=== PATIENT | female | born 2000 | race Caucasian/White ===

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

== ENCOUNTER 2022-05-06 02:11 | Inpatient (IN) ==
[2022-05-06] MEDS ORDERED: KETOROLAC TROMETHAMINE 15 MG/ML VIAL IV STA (02:38)
[2022-05-06] MEDS ORDERED: dexAMETHasone**PF** 10 MG/ML VIAL IV ONE (02:38)
[2022-05-06] MEDS ORDERED: FAMOTIDINE 20MG IV PUSH 20 MG/5 ML SYR IV STA (02:38)
[2022-05-06] MEDS ORDERED: SODIUM CHLORIDE 0.9% 1000ML 1,000 ML IV ONE ×2 (02:38→03:24)
--- NOTE | 2022-05-06 02:46 | Emergency Department Note ---
History of Present Illness General Chief complaint: Vomiting Stated complaint: VOMITING, JUST HAD TONSILS OUT Time Seen by Provider: 05/06/22 02:30 History of Present Illness Maximum Pain Intensity: 8 This 21-year-old presents to the ER complaining of nausea vomiting and feeling dehydrated who had a tonsillectomy last week Location: throat Quality: burning Severity: moderate Duration: past week Timin week ago Context: Patient felt dehydrated and came in Modifying factors: better with rest; worse with activity Patient denies chest pain, dyspnea, fevers, flulike illness. Tonsillectomy was done by [facility]. Home Medications Medication Instructions Recorded Confirmed Type escitalopram oxalate 20 mg tablet 20 mg PO DAILY #30 tab 03/28/21 05/06/22 Rx ondansetron HCl 4 mg tablet 4 mg PO Q6H PRN #10 tab 05/03/22 05/06/22 Rx acetaminophen 500 mg tablet 500 mg PO Q6H PRN 05/06/22 05/06/22 History (Tylenol Extra Strength) ibuprofen 200 mg tablet 400 mg PO Q6H PRN 05/06/22 05/06/22 History oxycodone 5 mg/5 mL oral solution 10 mg PO Q6H PRN 05/06/22 05/06/22 History Allergies Allergy/AdvReac Type Severity Reaction Status Date / Time No Known Allergies Allergy Verified 05/06/22 02:35 Past Med/Surg History Medical History No acute medical problems Surgical History History of wisdom tooth extraction Family History Grandmother (Maternal) Breast cancer Cancer Mother Asthma Allergies Other No family history of adverse response to anesthesia No family history of bleeding disorder Denies family history of Ovarian cancer Prostate cancer Myocardial infarction Colorectal cancer Social History Smoking Status: Never smoker Hx Alcohol Use: No Hx Substance Use: No Preferred Language: Turkmen marital status: Single Current Living Situation: Family current occupational status: employed Feels Safe at Home: Yes caffeine: Yes Dental Care, Regularly: Yes Physical Activity Frequency: Daily Seatbelt Use: always Sunscreen Use: Yes Review of Systems A total of 10 systems reviewed and were otherwise negative Physical Exam Vital Signs Vital Signs - 24 hr 05/06/22 02:18 05/06/22 04:45 05/06/22 06:16 Temperature 36.7 C Temperature Source Temporal Artery Scan Pulse Rate 89 Pulse Rate [Right] 75 86 Pulse Rhythm Regular Pulse Rhythm [Right] Regular Regular Pulse Strength Normal Pulse Strength [Right] Normal Normal Respiratory Rate 18 16 16 Respiratory Effort / Characteristics Non-Labored Spontaneous Non-Labored Spontaneous Non-Labored Spontaneous Respiratory Depth Normal Normal Normal Respiratory Pattern Regular Blood Pressure 114/73 Blood Pressure [Right Arm] 121/60 120/63 Blood Pressure Mean 86 Blood Pressure Mean [Right Arm] 80 82 Blood Pressure Position Sitting Blood Pressure Position [Right Arm] Sitting Lying Pulse Oximetry 97 98 96 Oxygen Delivery Method Room Air Room Air Room Air Sepsis Recent Fever Within 48 Hours No Sepsis New/Unexplained Change in Mental Status N/A Sepsis Action Taken by Nursing No Action Required VITALS: Vitals are noted on the nurse's note and reviewed by myself. Vital signs stable. GENERAL: Pleasant female, in no acute distress, nondiaphoretic, well-developed well-nourished. SKIN: The skin was without rashes, erythema, edema, or bruising. There is no tenting of the skin. Capillary reflex less than 2 seconds. HEAD: Normocephalic atraumatic. EARS: External auditory canals clear, tympanic membranes pearly agosto without erythema or effusion bilaterally. EYES: Pupils equal round and reactive to light and accommodation. Conjunctivae without injection, sclerae without icterus. Extraocular movements intact. NOSE: Patent, turbinates without inflammation or discharge. No sinus tenderness. MOUTH: Mucous membranes moist. Pharynx with erythematous with white pillars consistent with recent tonsillectomy without signs of infection. Uvula midline. Airway patent. Tongue does not deviate. NECK: Supple without nuchal rigidity. No lymphadenopathy. No thyromegaly. Cervical spine is nontender. No JVD. HEART: Regular rate and rhythm without murmurs gallops or rubs. LUNGS: Clear to auscultation bilaterally without wheezes, rales or rhonchi. No retractions or accessory muscle use. ABDOMEN: Positive bowel sounds x 4. Normal tympanic percussion. Soft, nontender, without masses or organomegaly. Jane sign negative. No guarding or rebound tenderness. No CVA tenderness MUSCULOSKELETAL: No muscle atrophy, erythema, or edema noted. NEURO: Patient was alert and oriented to person place and time. Normal sensation to light and sharp touch. No focal neurological deficits. Course Administered Medications Discontinued Medications Dexamethasone Sodium Phosphate (DexamethasonePf 10 Mg/Ml Vial) 10 mg IV NOW ONE Stop: 05/06/22 02:39 Last Admin: 05/06/22 03:00 Dose: 10 mg Documented by: [id number] Sodium Chloride (Nss 1000ml) 1,000 mls @ 999 mls/hr IV .Q1H1M ONE Stop: 05/06/22 03:38 Last Infusion: 05/06/22 04:04 Dose: 0 mls/hr Documented by: [id number] Admin: 05/06/22 02:54 Dose: 999 mls/hr Documented by: [id number] Infusion: 05/06/22 02:54 Dose: 999 mls/hr Documented by: [id number] Admin: 05/06/22 02:54 Dose: 999 mls/hr Documented by: [id number] Famotidine (Pepcid 20mg Iv Push) 20 mg in 5 mls @ 2.5 mls/min IV NOW STA Stop: 05/06/22 02:39 Last Admin: 05/06/22 02:55 Dose: 2.5 mls/min Documented by: [id number] Sodium Chloride (Nss 1000ml) 1,000 mls @ 999 mls/hr IV .Q1H1M ONE Stop: 05/06/22 03:38 Last Infusion: 05/06/22 04:04 Dose: 0 mls/hr Documented by: [id number] Admin: 05/06/22 02:54 Dose: 999 mls/hr Documented by: [id number] Sodium Chloride (Nss 1000ml) 1,000 mls @ 999 mls/hr IV .Q1H1M ONE Stop: 05/06/22 04:24 Last Infusion: 05/06/22 06:10 Dose: 0 mls/hr Documented by: [id number] Admin: 05/06/22 05:09 Dose: 999 mls/hr Documented by: [id number] Ketorolac Tromethamine (Ketorolac Tromethamine 15 Mg/Ml Vial) 10 mg IV NOW STA Stop: 05/06/22 02:39 Last Admin: 05/06/22 02:57 Dose: 10 mg Documented by: [id number] Morphine Sulfate (Morphine Sulfate 4 Mg/Ml 1 Ml Carp\Vial) 4 mg IV NOW STA Stop: 05/06/22 05:14 Last Admin: 05/06/22 05:20 Dose: 4 mg Documented by: [id number] Ondansetron HCl (Ondansetron Home Pack 4mg Od Tab) 1 homepack PO NOW ONE Stop: 05/06/22 02:55 Last Admin: 05/06/22 05:48 Dose: Not Given Documented by: [id number] Ondansetron HCl (Ondansetron Inj 2 Mg/Ml 2 Ml Vial) 4 mg IV NOW STA Stop: 05/06/22 02:55 Last Admin: 05/06/22 02:57 Dose: 4 mg Documented by: [id number] Medical Decision Making Medical Records Attestation: I reviewed the patient's medical records. Home Medications Current Medication List: was personally reviewed by me Laboratory Data Attestation: I reviewed the patient's lab results. Result diagrams: 05/06/22 02:50 05/06/22 05:31 Lab Results 05/06/22 05/06/22 05/06/22 Range/Units 02:50 02:50 03:46 WBC 9.72 (4.8-10.8) K/uL RBC 4.88 (4.2-5.4) M/uL Hgb 14.5 (12.0-16.0) g/dL Hct 42.2 (37-47) % MCV 86.5 (80-100) fL MCH 29.7 (25-34) pg MCHC 34.4 (32-36) g/dL RDW Std Deviation 39.7 (36.4-46.3) fL RDW Coeff of Shola 12.4 (11.5-14.5) % Plt Count 297 (130-400) K/uL MPV 10.4 (7.4-10.4) fL Immature Gran % (Auto) 0.3 % Neut % (Auto) 68.4 % Lymph % (Auto) 20.1 % [place] % (Auto) 9.6 % Eos % (Auto) 1.1 % Baso % (Auto) 0.5 % Neut # (Auto) 6.65 H (1.4-6.5) K/uL Lymph # (Auto) 1.95 (1.2-3.4) K/uL [place] # (Auto) 0.93 H (0.11-0.59) K/uL Eos # (Auto) 0.11 (0-0.5) K/uL Baso # (Auto) 0.05 (0-0.2) K/uL Immature Gran # (Auto) 0.03 H (0.00-0.02) K/uL VBG pH (7.36-7.41) VBG pCO2 (38-50) mmHg VBG pO2 mmHg VBG HCO3 mmol/L VBG O2 Saturation % VBG Base Excess mEq/L Sodium 135 L (136-145) mmol/L Potassium TNP Chloride 109 H (98-107) mmol/L Carbon Dioxide 9 L* (21-32) mmol/L Anion Gap 17 H (3-11) BUN 10 (6-23) mg/dl Creatinine 0.63 (0.6-1.2) mg/dl Est Cr Clr Drug Dosing 153.0 ml/min Est GFR ( Amer) 147.6 ml/min Est GFR (Non-Af Amer) 127.3 ml/min BUN/Creatinine Ratio 15.9 (10-20) Glucose 72 (70-99(Fasting)) mg/dl Calcium 9.7 (8.5-10.1) mg/dl Total Bilirubin (0.2-1.0) mg/dl Direct Bilirubin (0-0.2) mg/dl AST (13-39) U/L ALT (7-52) U/L Alkaline Phosphatase (34-104) U/L Total Protein (6.0-8.3) gm/dl Albumin (3.4-5.0) gm/dl HCG, Qual Negative (Negative) Salicylates (3.0-30) mg/dl Acetaminophen (10-30) ug/ml Ethyl Alcohol mg/dL (<10.0) mg/dl SARS-CoV-2, RNA, NAAT (NEGATIVE) 05/06/22 05/06/22 05/06/22 Range/Units 03:46 03:46 05:28 WBC (4.8-10.8) K/uL RBC (4.2-5.4) M/uL Hgb (12.0-16.0) g/dL Hct (37-47) % MCV (80-100) fL MCH (25-34) pg MCHC (32-36) g/dL RDW Std Deviation (36.4-46.3) fL RDW Coeff of Shola (11.5-14.5) % Plt Count (130-400) K/uL MPV (7.4-10.4) fL Immature Gran % (Auto) % Neut % (Auto) % Lymph % (Auto) % [place] % (Auto) % Eos % (Auto) % Baso % (Auto) % Neut # (Auto) (1.4-6.5) K/uL Lymph # (Auto) (1.2-3.4) K/uL [place] # (Auto) (0.11-0.59) K/uL Eos # (Auto) (0-0.5) K/uL Baso # (Auto) (0-0.2) K/uL Immature Gran # (Auto) (0.00-0.02) K/uL VBG pH 7.21 L (7.36-7.41) VBG pCO2 30 L (38-50) mmHg VBG pO2 42 mmHg VBG HCO3 12 mmol/L VBG O2 Saturation 73.0 % VBG Base Excess -14.5 mEq/L Sodium (136-145) mmol/L Potassium 4.1 Chloride (98-107) mmol/L Carbon Dioxide (21-32) mmol/L Anion Gap (3-11) BUN (6-23) mg/dl Creatinine (0.6-1.2) mg/dl Est Cr Clr Drug Dosing ml/min Est GFR ( Amer) ml/min Est GFR (Non-Af Amer) ml/min BUN/Creatinine Ratio (10-20) Glucose (70-99(Fasting)) mg/dl Calcium (8.5-10.1) mg/dl Total Bilirubin (0.2-1.0) mg/dl Direct Bilirubin (0-0.2) mg/dl AST (13-39) U/L ALT (7-52) U/L Alkaline Phosphatase (34-104) U/L Total Protein (6.0-8.3) gm/dl Albumin (3.4-5.0) gm/dl HCG, Qual (Negative) Salicylates (3.0-30) mg/dl Acetaminophen (10-30) ug/ml Ethyl Alcohol mg/dL (<10.0) mg/dl SARS-CoV-2, RNA, NAAT NEGATIVE (NEGATIVE) 05/06/22 05/06/22 05/06/22 Range/Units 05:31 05:31 05:31 WBC (4.8-10.8) K/uL RBC (4.2-5.4) M/uL Hgb (12.0-16.0) g/dL Hct (37-47) % MCV (80-100) fL MCH (25-34) pg MCHC (32-36) g/dL RDW Std Deviation (36.4-46.3) fL RDW Coeff of Shola (11.5-14.5) % Plt Count (130-400) K/uL MPV (7.4-10.4) fL Immature Gran % (Auto) % Neut % (Auto) % Lymph % (Auto) % [place] % (Auto) % Eos % (Auto) % Baso % (Auto) % Neut # (Auto) (1.4-6.5) K/uL Lymph # (Auto) (1.2-3.4) K/uL [place] # (Auto) (0.11-0.59) K/uL Eos # (Auto) (0-0.5) K/uL Baso # (Auto) (0-0.2) K/uL Immature Gran # (Auto) (0.00-0.02) K/uL VBG pH (7.36-7.41) VBG pCO2 (38-50) mmHg VBG pO2 mmHg VBG HCO3 mmol/L VBG O2 Saturation % VBG Base Excess mEq/L Sodium 135 L (136-145) mmol/L Potassium 4.4 Chloride 112 H (98-107) mmol/L Carbon Dioxide 11 L (21-32) mmol/L Anion Gap 12 H (3-11) BUN 9 (6-23) mg/dl Creatinine 0.53 L (0.6-1.2) mg/dl Est Cr Clr Drug Dosing 181.8 ml/min Est GFR ( Amer) > 150.0 ml/min Est GFR (Non-Af Amer) 134.8 ml/min BUN/Creatinine Ratio 17.0 (10-20) Glucose 82 (70-99(Fasting)) mg/dl Calcium 8.4 L (8.5-10.1) mg/dl Total Bilirubin 0.5 (0.2-1.0) mg/dl Direct Bilirubin 0.0 (0-0.2) mg/dl AST 15 (13-39) U/L ALT 12 (7-52) U/L Alkaline Phosphatase 87 (34-104) U/L Total Protein 7.3 (6.0-8.3) gm/dl Albumin 3.9 (3.4-5.0) gm/dl HCG, Qual (Negative) Salicylates < 3.0 L (3.0-30) mg/dl Acetaminophen < 3 L (10-30) ug/ml Ethyl Alcohol mg/dL < 10.0 (<10.0) mg/dl SARS-CoV-2, RNA, NAAT (NEGATIVE) MDM Narrative Prior records/ancillary studies reviewed. Triage Nursing notes reviewed. Additional history obtained from family. The patient's history was concerning for feeling dehydrated and ongoing throat pain after tonsillectomy Differential diagnosis: Etiologies such as postsurgical complication, dehydration, viral illness, infection as well as others were entertained. ER treatment provided: IV fluids, Zofran, Pepcid, Decadron, toradol, morphine On reassessment the patient felt better. Diagnostics interpreted by me: The labs revealed no worrisome leukocytosis. pH 7.2. Bicarb is low. Gap is high. Negative alcohol. Negative Tylenol. Negative aspirin. Negative hCG This appears to be consistent with nausea and vomiting and dehydration from recent surgery. Patient was acidotic on initial testing so extensive laboratory work-up was initiated. Medicine was consulted. She will be admitted. By the ev aluation outlined above emergent etiologies such as peritonsillar abscess, retropharyngeal abscess, otitis, pneumonia, meningitis, sepsis, bacteremia, as well as others were deemed relatively unlikely. The pt informed about the findings as listed above. All questions were answered and pleased with the treatment. The chart was completed utilizing [employer] voice recognition software. Grammatical errors, random word insertions, pronoun errors, and incomplete sentences are an occassional consequence of this system due to software limitations, ambient noise, and hardware issues. Any formal questions or concerns about the content, text, or information contained within the body of this dictation should be directly addressed to the physician speech language pathologist assistant for clarification. Impression & Plan S/P T&A (status post tonsillectomy and adenoidectomy), Acute dehydration, Vomiting Discharge Plan Visit Data Chief Complaint: Vomiting Stated Complaint: VOMITING, JUST HAD TONSILS OUT ED Provider: Jayy Millard ED Midlevel Provider: Deborah Fernandez Discharge Problem: S/P T&A (status post tonsillectomy and adenoidectomy), Acute dehydration, V omiting Patient Disposition: Admitted As Inpatient Condition: Good Discharge Instructions Krames/Other Patient Handouts: ED [facility] Vomiting Activity Restrictions/Additional Instructions: Forms Stand Alone Forms: Virtual Emergency Department, Important Visit Information Prescriptions Prescriptions: No Action escitalopram oxalate 20 mg tablet 20 mg PO DAILY Qty: 30 RF: 2 oxycodone 5 mg/5 mL solution 10 mg PO Q6H PRN (Reason: Pain) RF: 0 acetaminophen [Tylenol Extra Strength] 500 mg Tablet 500 mg PO Q6H PRN (Reason: Pain) RF: 0 ibuprofen 200 mg Tablet 400 mg PO Q6H PRN (Reason: Pain) RF: 0 ondansetron HCl 4 mg tablet 4 mg PO Q6H PRN (Reason: nausea and vomiting) Qty: 10 RF: 0 Referrals Referrals: Kelsie Currie MD [Primary Care Provider] -
[2022-05-06] MEDS: SODIUM CHLORIDE 0.9% 1000ML 1,000 ML IV ONE (02:54)
[2022-05-06] MEDS ORDERED: ONDANSETRON HOME PACK 4MG OD TAB PO ONE (02:54)
[2022-05-06] MEDS ORDERED: ONDANSETRON INJ 2 MG/ML 2 ML VIAL IV STA ×2 (02:54→17:35)
[2022-05-06 03:21] LABS: Basophils # (auto) 0.05 K/uL (0-0.2); Basophils % (auto) 0.5 %; Eosinophils # (auto) 0.11 K/uL (0-0.5); Eosinophils % (auto) 1.1 %; Hematocrit (blood only) 42.2 % (37-47); Hemoglobin 14.5 g/dL (12.0-16.0); Immature Granulocytes # (auto) 0.03 K/uL (0.00-0.02); Immature Granulocytes % (auto) 0.3 %; Lymphocytes # (auto) 1.95 K/uL (1.2-3.4); Lymphocytes % (auto) 20.1 %; Mean Corpuscular Hemoglobin 29.7 pg (25-34); Mean Corpuscular Hgb Conc 34.4 g/dL (32-36); Mean Corpuscular Volume 86.5 fL (80-100); Mean Platelet Volume 10.4 fL (7.4-10.4); Monocytes # (auto) 0.93 K/uL (0.11-0.59); Monocytes % (auto) 9.6 %; Neutrophils # (auto) 6.65 K/uL (1.4-6.5); Neutrophils % (auto) 68.4 %; Platelet Count 297 K/uL (130-400); RDW Coefficient of Variation 12.4 % (11.5-14.5); RDW Standard Deviation 39.7 fL (36.4-46.3); Red Blood Count 4.88 M/uL (4.2-5.4); White Blood Count 9.72 K/uL (4.8-10.8)
[2022-05-06 03:22] LABS: Anion Gap 17 (3-11); BUN Creatinine Ratio 15.9 (10-20); Blood Urea Nitrogen 10 mg/dl (6-23); Calcium 9.7 mg/dl (8.5-10.1); Carbon Dioxide 9 mmol/L (21-32); Chloride 109 mmol/L (98-107); Est GFR (African American) 147.6 ml/min; Est GFR (Non-African American) 127.3 ml/min; Glucose 72 mg/dl (70-99(Fasting)); Sodium 135 mmol/L (136-145)
[2022-05-06 03:53] LABS: Base Excess VBG -14.5 mEq/L; HCO3 VBG 12 mmol/L; PCO2 VBG 30 mmHg (38-50); PO2 VBG 42 mmHg; pH VBG 7.21 (7.36-7.41)
[2022-05-06 04:11] LABS: Pregnancy Test, Serum Negative (Negative)
[2022-05-06] MEDS ORDERED: MoRPHine SULFATE 4 MG/ML 1 ML CARP\\VIAL IV STA (05:13)
[2022-05-06 06:17] LABS: Acetaminophen < 3 ug/ml (10-30); Alanine Aminotransferase 12 U/L (7-52); Albumin Level 3.9 gm/dl (3.4-5.0); Alkaline Phosphatase 87 U/L (34-104); Anion Gap 12 (3-11); Aspartate Aminotransferase 15 U/L (13-39); Bilirubin,Total 0.5 mg/dl (0.2-1.0); Blood Urea Nitrogen 9 mg/dl (6-23); Calcium 8.4 mg/dl (8.5-10.1); Carbon Dioxide 11 mmol/L (21-32); Chloride 112 mmol/L (98-107); Creatinine Clr Calc Pharmacy 181.8 ml/min; Est GFR (African American) > 150.0 ml/min; Est GFR (Non-African American) 134.8 ml/min; Glucose 82 mg/dl (70-99(Fasting)); Potassium 4.4 mmol/L (3.5-5.1); Salicylate < 3.0 mg/dl (3.0-30); Sodium 135 mmol/L (136-145); Total Protein 7.3 gm/dl (6.0-8.3)
--- NOTE | 2022-05-06 06:18 | Emergency Department Note ---
ED Visit Note [facility] patient's oropharynx has postoperative changes in the posterior pharynx and hypopharynx. She has no evidence of scab or current oral bleeding. Patient is stable for admission here for rehydration .
--- NOTE | 2022-05-06 06:28 | History & Physical Report ---
Date of Service May 06, 2022 Assessment & Plan (1) Acute dehydration: Plan: 21 y/o F Hx anxiety and recurrent tonsillitis. She is one week post tonsillectomy at [facility]. She reports an inability to eat or drink sufficient amounts, reflux and vomiting bile 2 x prior to arrival. Initial labs were notable for a bicarb of 9 and a pH of 7.2. 1) Anion gap acidosis likely due to poor intake and bicarb loss. Interestingly, electrolytes are otherwise normal. Pt is admitted for IVF and correction of acidosis. She received 2L IVF in the ER. We are pending repeat labs and can provide bicarb if needed based on results. DC later in day may be possible if acidosis corrects. 2) Anxiety - cont Lexapro 3) Post tonsillectomy - FU with ENT, pain control. Full code - ambulatory Total time for this admit including review of labs, meds, imaging, records - discussion with pt and ER attending - 37 min (2) S/P T&A (status post tonsillectomy and adenoidectomy): (3) Throat pain: (4) Acidosis: History of Present Illness Chief Complaint: [place], vomiting, poor PO intake, throat pain Primary Care Provider: Kelsie Currie MD 21 y/o F Hx anxiety and recurrent tonsillitis. She is one week post tonsillectomy at [facility]. She reports an inability to eat or drink sufficient amounts, reflux and vomiting bile 2 x prior to arrival. Initial labs were notable for a bicarb of 9 and a pH of 7.2. PMH: limited to anxiety Surgical: Limited to tonsillectomy Social: does not smoke. Occasional ETOH Family: Parents alive and well Allergies Allergy/AdvReac Type Severity Reaction Status Date / Time No Known Allergies Allergy Verified 05/06/22 02:35 Home Medications Medication Instructions Recorded Confirmed Type escitalopram oxalate 20 mg tablet 20 mg PO DAILY #30 tab 03/28/21 05/06/22 Rx ondansetron HCl 4 mg tablet 4 mg PO Q6H PRN #10 tab 05/03/22 05/06/22 Rx acetaminophen 500 mg tablet 500 mg PO Q6H PRN 05/06/22 05/06/22 History (Tylenol Extra Strength) ibuprofen 200 mg tablet 400 mg PO Q6H PRN 05/06/22 05/06/22 History oxycodone 5 mg/5 mL oral solution 10 mg PO Q6H PRN 05/06/22 05/06/22 History Past Med/Surg History Medical History No acute medical problems Surgical History History of wisdom tooth extraction Family History Grandmother (Maternal) Breast cancer Cancer Mother Asthma Allergies Other No family history of adverse response to anesthesia No family history of bleeding disorder Denies family history of Ovarian cancer Prostate cancer Myocardial infarction Colorectal cancer Social History Smoking Status: Never smoker Hx Alcohol Use: No Hx Substance Use: No Preferred Language: Yakut marital status: Single Current Living Situation: Family current occupational status: employed Feels Safe at Home: Yes caffeine: Yes Dental Care, Regularly: Yes Physical Activity Frequency: Daily Seatbelt Use: always Sunscreen Use: Yes Review of Systems Review of Systems: Gen: Denies fevers, night sweats, rigors, fatigue, malaise, weight loss/gain ENT: + throat pain Eyes: Denies acute visual changes CV: Denies CP, palpitations Pulmonary: Denies SOB, cough, wheezing GI: + nausea/vomiting Neuro: Denies acute or unilateral weakness, acute gait impairment, headache or acute visual changes Musculoskeletal: Denies joint pain, inflammation Endocrine: Denies polydipsia, polyuria Skin: Denies acute rashes or ulcers Physical Exam Physical Exam: General: AAO x 3, no distress ENT: Post-op exudate over pharynx/arches Eyes: RANGEL, EOMI Head and neck: Normocephalic, atraumatic, No JVD, neck is supple. Chest/heart: Nontender, S1,2, RRR, no murmurs, no gallops Lungs: CTAB, no wheezing or crackles Abdomen: Nontender, nondistended, BS+ Neuro: AAO x 3, speech is clear, no unilateral weakness or loss of sensation, coordination intact Musculoskeletal: No joint inflammation, muscle tenderness, FROM Skin: No acute rashes or ulcers Extremities: No clubbing, cyanosis, edema Results & Data Results & Data ([facility] [place]) Vital Signs (Past 12 Hours) Vital Signs Temp Pulse Pulse Resp BP BP Pulse Ox 05/06/22 04:45 75 16 121/60 98 05/06/22 02:18 98.1 F 89 18 114/73 97 PG Care Time/CCT Total # of Minutes Spent Total Time Spent with Patient: Total time spent is greater than 50% in coordination of care (as documented) at patient's floor/unit and/or counseling patient: Coding Level of Care Code INT OBSERVATION CARE 50M LVL 2 Diagnoses Acute dehydration E86.0 S/P T&A (status post tonsillectomy and adenoidectomy) Z90.89 Throat pain R07.0 Acidosis E87.2
[2022-05-06] MEDS ORDERED: STAT IV STA (06:34)
[2022-05-06] MEDS ORDERED: SODIUM BICARBONATE 8.4% 150 MEQ in DEXTROSE 5% 1,000 ML IV SCH (07:00)
[2022-05-06] MEDS ORDERED: ACETAMINOPHEN 500 MG TAB PO PRN (09:31)
[2022-05-06] MEDS ORDERED: IBUPROFEN 200 MG TAB PO PRN (09:31)
[2022-05-06] MEDS: D5W AND NSS 1,000 ML IV SCH (09:33)
[2022-05-06] MEDS ORDERED: ACETAMINOPHEN SUSP 500 MG/15.6 ML UDP PO PRN (10:03)
[2022-05-06] MEDS: ESCITALOPRAM OXALATE 20 MG TAB PO SCH (11:31)
[2022-05-06 12:46] LABS: Anion Gap 10 (3-11); BUN Creatinine Ratio 16.7 (10-20); Blood Urea Nitrogen 8 mg/dl (6-23); Calcium 9.2 mg/dl (8.5-10.1); Carbon Dioxide 15 mmol/L (21-32); Chloride 110 mmol/L (98-107); Creatinine Clr Calc Pharmacy 191.3 ml/min; Est GFR (African American) > 150.0 ml/min; Est GFR (Non-African American) 139.2 ml/min; Glucose 203 mg/dl (70-99(Fasting)); Potassium 4.4 mmol/L (3.5-5.1); Sodium 135 mmol/L (136-145)
[2022-05-06] MEDS ORDERED: IBUPROFEN 200 MG/10 ML UDC PO PRN (13:00)
[2022-05-06] MEDS: HYDROmorphone INJ 0.5 MG/0.5 ML SYR IV PRN (17:16)
[2022-05-06] MEDS ORDERED: ONDANSETRON INJ 2 MG/ML 2 ML VIAL IV ONE (17:27)
[2022-05-06] MEDS ORDERED: ONDANSETRON INJ 2 MG/ML 2 ML VIAL IV PRN (17:35)
--- NOTE | 2022-05-06 18:31 | Hospitalist Progress Note ---
Date of Service May 06, 2022 Assessment & Plan (1) Acidosis: (2) Acute dehydration: (3) S/P T&A (status post tonsillectomy and adenoidectomy): (4) Anxiety associated with depression: Plan: Slime is a 21 year old female w/ PmHx of anxiety, depression, recurrent tonsil infections s/p tonsillectomy one week prior admitted for acidosis and poor PO intake. Acidosis: -pH 7.2, CO2 30 on VBG. Bicarb 9, anion gap 17 on admission -Electrolytes WNL. -Poor PO intake, vomiting x2 likely cause -Given 1 bag bicarb, IVF. -Repeat bicarb 11, anion gap 12 - resolved. Acute Dehydration/Poor PO intake: -Likely secondary to pain from tonsillectomy/adenoidectomy -Patient unable to take down significant amount of food. -Given 4mg Zofran for nausea. -Will try to reach out to ENT for recs on possible chloroseptic spray or lidocaine swallow. S/P Tonsillectomy/Adenoidectomy: -Same plan as above. Anxiety/Depression: -Continue home escitalopram if able to intake. DVT: None F/E/N/GI: Diet as tolerated, monitor electrolytes. Code Status: Full Dispo: Med/Surg Admission and Anticipated Discharge Date Admission Date: May 06, 2022 Subjective Patient seen at the bedside this morning with her mother. Patient states the main reason she's coming in to the hospital was due to a reflux sensation that was independent of position that developed the past few days. She tried calling her ENT office last night to ask about it however the office stated there was an issue getting in contact with the doctor. The patient then came in to the hospital for further, more rapid analysis of her issue. She has had some improvement of the reflux symptoms. She is unable to take much down aside from a small amount of her sports drink this morning. Mother tried to give her pancakes from [employer] however she was only able to get down three bites. Denies any fevers, chills, changes in hearing. +pain with swallowing. Review of Systems Constitutional: as per Subjective / HPI Physical Exam Constitutional: WD/WN, vitals as above Eyes: PERRL, conjunctivae normal, anicteric sclerae ENMT: Tonsilar exhudate bilaterally without noticeable swelling. Tenderness to palpation of anterior neck. Respiratory: normal respiratory effort, lungs clear to auscultation Cardiovascular: RRR, no murmur, no edema Gastrointestinal (Abdomen): normal bowel sounds, soft, nontender, no hepatosplenomegaly Results & Data Results & Data ([facility]) Vital Signs (Past 12 Hours) Vital Signs Temp Pulse Pulse Resp BP BP Pulse Ox 05/06/22 15:09 36.6 C 65 16 113/71 98 05/06/22 09:20 36.7 C 87 18 114/74 98 05/06/22 09:15 72 18 107/64 97 05/06/22 08:00 69 20 115/70 96
[2022-05-06] MEDS ORDERED: ALUMINUM/MAGNESIUM/SIMETH (MAALOX MAX) 30 ML UDC PO PRN (18:33)
--- NOTE | 2022-05-06 18:33 | Communication Note ---
Date of Service: May 06, 2022 Seen in follow-up from early a.m. admission. Patient notes that she is feeling better than when she came in, but still fairly lousy overall. Her reflux has improvednotes the medications helped with that a lot. As far as being able to eat and drinkshe notes it still hurts a good bit to swallow, and she really has only been taking fluids whenever it is time to take medications. She does feel better than when if she came in overall though, but notes that she would absolutely not be able to take in adequate p.o. at home yet. Vitals noted, in general she is awake and alert fatigued but no distress. HEENT normocephalic atraumatic mucous membranes moist. Oropharynx with exudate and what appears to be the tonsillar beds as well as her posterior pharynxin a way that seems quite consistent with a recent tonsillectomy. No palpable anterior cervical adenopathy. No other infectious findings noted. Breathing unlabored no accessory muscle use good effort. Skin shows no rashes no pallor or icterus. Neuro without focal deficits. Mental status intact. Severe dehydration with metabolic acidosisdue to throat pain and reflux precluding adequate p.o. intake. Manage symptoms, continue hydration, serial exams. Does not appear to require antibiotics at this time. Continue to follow.
[2022-05-06] MEDS: FAMOTIDINE 20 MG in SYRINGE 3 ML IV SCH ×2 (20:16→20:50)
[2022-05-07] MEDS: HYDROmorphone INJ 0.5 MG/0.5 ML SYR IV PRN (01:39)
[2022-05-07] MEDS: D5W AND NSS 1,000 ML IV SCH ×2 (02:37→02:39)
[2022-05-07] MEDS ORDERED: KETOROLAC TROMETHAMINE 15 MG/ML VIAL IV STA (06:06)
[2022-05-07 06:56] LABS: Anion Gap 6 (3-11); BUN Creatinine Ratio 17.6 (10-20); Blood Urea Nitrogen 9 mg/dl (6-23); Calcium 8.6 mg/dl (8.5-10.1); Carbon Dioxide 24 mmol/L (21-32); Chloride 109 mmol/L (98-107); Creatinine Clr Calc Pharmacy 180.1 ml/min; Est GFR (African American) > 150.0 ml/min; Est GFR (Non-African American) 136.5 ml/min; Glucose 142 mg/dl (70-99(Fasting)); Potassium 3.3 mmol/L (3.5-5.1); Sodium 139 mmol/L (136-145)
[2022-05-07] MEDS: ESCITALOPRAM OXALATE 20 MG TAB PO SCH (08:47)
[2022-05-07] MEDS: FAMOTIDINE 20 MG in SYRINGE 3 ML IV SCH ×2 (08:47→21:35)
[2022-05-07] MEDS: ACETAMINOPHEN 65 ML IV PRN ×2 (10:18→23:42)
--- NOTE | 2022-05-07 11:14 | Hospitalist Progress Note ---
Date of Service May 07, 2022 Assessment & Plan (1) Acidosis: (2) Acute dehydration: (3) S/P T&A (status post tonsillectomy and adenoidectomy): (4) Anxiety associated with depression: Plan: Slime is a 21 year old female w/ PmHx of anxiety, depression, recurrent tonsil infections s/p tonsillectomy one week prior admitted for acidosis and poor PO intake. Acidosis: -pH 7.2, CO2 30 on VBG. Bicarb 9, anion gap 17 on admission -Electrolytes WNL. -Poor PO intake, vomiting x2 likely cause -Given 1 bag bicarb, LR IVF -Repeat bicarb 24, anion gap 6 - resolved. Acute Dehydration/Poor PO intake: -Likely secondary to pain from tonsillectomy/adenoidectomy -Patient unable to take down significant amount of food. -Given 4mg Zofran for nausea. -Patient rehydrated, encouraged increased PO intake with pain medications. -Tylenol IV 650mg Q8h, Toradol 15mg IV Q6h -Attempted to call Dr. Gomez ENT at [phone] but unable to get connected - will reattempt tomorrow. S/P Tonsillectomy/Adenoidectomy: -Same plan as above. Anxiety/Depression: -Continue home escitalopram if able to intake. DVT: None F/E/N/GI: Diet as tolerated, monitor electrolytes. Code Status: Full Dispo: Med/Surg Admission and Anticipated Discharge Date Admission Date: May 06, 2022 Supervising Physician Co-Signing Physician Notes I personally examined the patient and verified all thibodeaux points of history and exam, discussed case, and agree with decision making with Dr Hall Feeling a tiny bit better. Was able to eat and drink a little bit more, throat is still painful, but when asked directly to compare to yesterday or the day before she notes its more sore than painful and still feels swollen, but definitely seems to be improving. Reflux symptoms much improved as well. Vitals noted, in general she is awake and alert pleasant no distress. HEENT normocephalic atraumatic mucous membranes moist oropharynx still with exudative appearance very consistent with yesterday. Breathing unlabored no accessory muscle use good effort. Skin shows no rashes no pallor or icterus. Neuro without focal deficits. Severe dehydration with metabolic acidosisdue to throat pain and reflux precluding adequate p.o. intake. Now seems to be slowly improving. I suspect with time she will continue to improve. At this point time no clear need for antibioticsno fever no white count, and given that her mother had concerns about whether or not she might mount an appropriate inflammatory responseCRP and procal very reassuring - real evidence of infection. Discussed risk/benefit of steroidsas this would probably more rapidly improve her throat pain and swelling, but also increase risk of a postop infection at least to a degree, and possibly slow postop healing, and again at least to a degree. Given that she is showing some improvement, after discussion, patient and myself agreed to hold off on steroids at this time. Continue current care, continue supportive care. Subjective Patient seen at the bedside this morning with mother present on the phone. Patient states it's difficult for her to speak due to the pain she has at her oropharynx. She feels a little worse than yesterday, she has not eaten much, only able to eat 3 bites of pancakes yesterday at most. Review of Systems Constitutional: as per Subjective / HPI Physical Exam Constitutional: WD/WN, vitals as above Eyes: PERRL, conjunctivae normal, anicteric sclerae ENMT: Oropharynx with exudate over tonsillar spaces at location of tonsillectomy, however without evidence of noticeable swelling. Good dentition. Neck: Mild tenderness to anterior cervical neck without palpable lymphadenopathy. Respiratory: normal respiratory effort, lungs clear to auscultation Cardiovascular: RRR, no murmur, no edema Gastrointestinal (Abdomen): normal bowel sounds, soft, nontender, no hepatosplenomegaly Results & Data Results & Data ([facility]) Vital Signs (Past 12 Hours) Vital Signs Temp Pulse Pulse Resp BP BP Pulse Ox 05/07/22 09:31 36.7 C 64 20 102/65 98 05/07/22 07:20 36.4 C L 50 L 16 98/64 L 98 Resident Activity Tracking Resident Involvement: Resident Care Provided Care Provided: Adult Hospital Medicine
[2022-05-07] MEDS: POTASSIUM CHLORIDE / WTR 10 MEQ/100 ML PLCT IV SCH ×3 (11:16→13:01)
[2022-05-07] MEDS: KETOROLAC TROMETHAMINE 15 MG/ML VIAL IV PRN ×2 (12:40→18:25)
--- NOTE | 2022-05-07 18:49 | Billing Data ---
Date of Service May 07, 2022 Coding Level of Care Code 16149 Subseq Obs Care Lvl 3
[2022-05-08] MEDS: KETOROLAC TROMETHAMINE 15 MG/ML VIAL IV PRN ×2 (02:22→08:37)
[2022-05-08 06:34] LABS: Anion Gap 5 (3-11); BUN Creatinine Ratio 23.3 (10-20); Blood Urea Nitrogen 10 mg/dl (6-23); Calcium 8.6 mg/dl (8.5-10.1); Carbon Dioxide 28 mmol/L (21-32); Chloride 109 mmol/L (98-107); Creatinine Clr Calc Pharmacy 213.6 ml/min; Est GFR (African American) > 150.0 ml/min; Est GFR (Non-African American) 144.4 ml/min; Glucose 97 mg/dl (70-99(Fasting)); Magnesium 1.7 mg/dl (1.7-2.4); Potassium 3.1 mmol/L (3.5-5.1); Sodium 142 mmol/L (136-145)
--- NOTE | 2022-05-08 06:53 | Hospitalist Progress Note ---
Date of Service May 08, 2022 Assessment & Plan (1) Acidosis: (2) Acute dehydration: (3) S/P T&A (status post tonsillectomy and adenoidectomy): (4) Anxiety associated with depression: Plan: Slime is a 21 year old female w/ PmHx of anxiety, depression, recurrent tonsil infections s/p tonsillectomy one week prior admitted for acidosis and poor PO intake. Acidosis: -pH 7.2, CO2 30 on VBG. Bicarb 9, anion gap 17 on admission -Electrolytes WNL. -Poor PO intake, vomiting x2 likely cause -Given 1 bag bicarb, LR IVF -Repeat bicarb 24, anion gap 6 - resolved. Acute Dehydration/Poor PO intake: -Likely secondary to pain from tonsillectomy/adenoidectomy -Patient unable to take down significant amount of food. -Given 4mg Zofran for nausea. -Patient rehydrated, encouraged increased PO intake with pain medications. -Tylenol IV 650mg Q8h, Toradol 15mg IV Q6h -> will trial back on Tylenol 500mg suspension and ibuprofen 400mg suspension. -Most likely discharge tomorrow morning if still feeling better than arrival. Hypokalemia: -K+ 3.3 on 05/07, repeat 3.1 on 05/08 -Attempted KCl rider but too painful for patient. -Patient with increased PO intake today so will trend BMP for now. -If lower K+, will revisit K riders or diluted K in NSS. S/P Tonsillectomy/Adenoidectomy: -Same plan as above. Anxiety/Depression: -Continue home escitalopram if able to intake. DVT: None F/E/N/GI: Diet as tolerated, monitor electrolytes. Code Status: Full Dispo: Med/Surg Admission and Anticipated Discharge Date Admission Date: May 06, 2022 Supervising Physician Co-Signing Physician Notes I personally examined the patient and verified all thibodeaux points of history and exam, discussed case, and agree with decision making with Dr Hall Continues to feel a little bit better each day. Was able to take in some boost. Notes that Toradol is helping a good bit with pain. Mother notes that she is able to get an 8 ounces between each dose of Toradol when the pain relief kicks and and therefore is able to drink 32 ounces a day. Vitals noted, in general she is awake and alert pleasant no distress. HEENT normocephalic atraumatic mucous membranes moist oropharynx still with exudative appearance but actually appears a little less inflamed and exudative than yesterday. No palpable cervical anterior adenopathy.. Breathing unlabored no accessory muscle use good effort. Skin shows no rashes no pallor or icterus. Neuro without focal deficits. Severe dehydration with metabolic acidosisdue to throat pain and reflux precluding adequate p.o. intake. Continues to slowly improve. I suspect with time she will continue to improve. Still no clear need for antibiotics. Previously discussed risk/benefit of steroidsas this would probably more rapidly improve her throat pain and swelling, but also increase risk of a postop infection at least to a degree, and possibly slow postop healing, and again at least to a degree. Since she is continuing to show slow improvement, hold off on steroids. Continue current care, continue supportive care. Subjective Patient seen at the bedside this morning with endorsement of improvement in throat pain. Patient states that she drank most of her boost this morning. Patient denies fevers, chills, nausea. Patient states that she had hallucinations secondary to hydromorphone use. Patient stated she saw her pet dog in the room but knew the dog was not in the room, also had a hallucination that there was an egg in her mouth similar to the [employer] movie. She states she would not like to take hydromorphone again due to these hallucinations, states that the Toradol helped the most with the pain. Talked with Dr. Gomez via phone about the patient's progression and what to expect postop. He stated the patient received Tylenol, ibuprofen, oxycodone suspensions. He stated the oxycodone suspension was meant for breakthrough pain as needed. He stated given that she is postop day 8 she may still have some pain over the next few days but it should go down. When talking with the patient I confirm she received the oxycodone 10 mg suspension however she endorsed not having much relief at all from the oxycodone. Review of Systems Constitutional: as per Subjective / HPI Physical Exam Constitutional: WD/WN, vitals as above ENMT: Oropharynx with exudate over tonsillar spaces at location of tonsillectomy unchanged from exam yesterday, however without evidence of noticeable swelling. Good dentition. Respiratory: normal respiratory effort, lungs clear to auscultation Cardiovascular: RRR, no murmur, no edema Gastrointestinal (Abdomen): normal bowel sounds, soft, nontender, no hepatosplenomegaly Results & Data Results & Data ([facility]) Vital Signs (Past 12 Hours) Vital Signs Temp Pulse Resp BP Pulse Ox 05/08/22 06:16 36.7 C 54 L 16 99/64 L 99 05/07/22 22:58 36.8 C 53 L 17 109/71 98 Resident Activity Tracking Resident Involvement: Resident Care Provided Care Provided: Adult Hospital Medicine
[2022-05-08] MEDS: FAMOTIDINE 20 MG in SYRINGE 3 ML IV SCH ×2 (08:16→20:17)
[2022-05-08] MEDS: ESCITALOPRAM OXALATE 20 MG TAB PO SCH (09:20)
[2022-05-08] MEDS: ACETAMINOPHEN 65 ML IV PRN (12:50)
[2022-05-08] MEDS: IBUPROFEN 200 MG/10 ML UDC PO PRN (14:45)
--- NOTE | 2022-05-08 18:04 | Billing Data ---
Date of Service May 08, 2022 Coding Level of Care Code 78197 Subseq Hosp Care Lvl 3
[2022-05-08] MEDS ORDERED: KETOROLAC TROMETHAMINE 15 MG/ML VIAL IV ONE (21:02)
[2022-05-09] MEDS: IBUPROFEN 200 MG/10 ML UDC PO PRN (06:39)
[2022-05-09] MEDS: FAMOTIDINE 20 MG in SYRINGE 3 ML IV SCH (08:34)
[2022-05-09] MEDS: ESCITALOPRAM OXALATE 20 MG TAB PO SCH (08:41)
[2022-05-09] MEDS ORDERED: IBUPROFEN 200 MG/10 ML UDC PO PRN ×2 (10:06→11:13)
--- NOTE | 2022-05-09 14:46 | Discharge Summary ---
Date of Service May 09, 2022 Admission HPI Per Admitting Provider 21 y/o F Hx anxiety and recurrent tonsillitis. She is one week post tonsillectomy at [facility]. She reports an inability to eat or drink sufficient amounts, reflux and vomiting bile 2 x prior to arrival. Initial labs were notable for a bicarb of 9 and a pH of 7.2. PMH: limited to anxiety Surgical: Limited to tonsillectomy Social: does not smoke. Occasional ETOH Family: Parents alive and well Admission Exam Per Admitting Provider General: AAO x 3, no distress ENT: Post-op exudate over pharynx/arches Eyes: RANGEL, EOMI Head and neck: Normocephalic, atraumatic, No JVD, neck is supple. Chest/heart: Nontender, S1,2, RRR, no murmurs, no gallops Lungs: CTAB, no wheezing or crackles Abdomen: Nontender, nondistended, BS+ Neuro: AAO x 3, speech is clear, no unilateral weakness or loss of sensation, coordination intact Musculoskeletal: No joint inflammation, muscle tenderness, FROM Skin: No acute rashes or ulcers Extremities: No clubbing, cyanosis, edema Principal Diagnosis Post Op pain induced dehydration, acidosis Discharge Exam Constitutional WD/WN, vitals as above ENMT Mouth / Teeth: 1. exudate improved since admission 2. exudate improved since admission Oropharynx with exudate over tonsillar spaces at location of tonsillectomy mildly improved from exam yesterday, however without evidence of noticeable swelling. Good dentition. Respiratory normal respiratory effort, lungs clear to auscultation Cardiovascular RRR, no murmur, no edema Gastrointestinal (Abdomen) normal bowel sounds, soft, nontender, no hepatosplenomegaly Discharge Data Allergies Allergy/AdvReac Type Severity Reaction Status Date / Time hydromorphone [From Dilaudid] AdvReac Mild Hallucinati Verified 05/08/22 10:43 ng Consultations 05/06/22 05:27 ED Decision to Admit Stat Hospital Course (1) Acidosis: (2) Acute dehydration: (3) S/P T&A (status post tonsillectomy and adenoidectomy): (4) Anxiety associated with depression: Slime is a 21 year old female w/ PmHx of anxiety, depression, recurrent tonsil infections s/p tonsillectomy one week prior admitted for acidosis and poor PO intake. Acidosis: -pH 7.2, CO2 30 on VBG. Bicarb 9, anion gap 17 on admission -Electrolytes WNL. -Poor PO intake, vomiting x2 likely cause -Given 1 bag bicarb, LR IVF -Repeat bicarb 24, anion gap 6 - resolved. Acute Dehydration/Poor PO intake: -Likely secondary to pain from tonsillectomy/adenoidectomy -Patient rehydrated, encouraged increased PO intake with pain medications. -Patient had good relief with Toradol for breakthrough pain. -Patient able to drink boost well before discharge, tolerate some soft foods. -Patient sent home with 1000mg suspension Tylenol PRN, 800mg ibuprofen PRN for pain, famotidine 20mg BID x3-4 days for reflux -F/U w/ PCP 05/13. Hypokalemia: -K+ 3.3 on 05/07, repeat 3.1 on 05/08 -Attempted KCl rider but too painful for patient. -Patient able to tolerate boost supplement and liquid diet, encouraged increased PO intake for electrolyte replenishment. -Recheck BMP at follow up PCP visit. Total Time Total Time Spent Total Time Spent (In Minutes): Please see attending attestation. Discharge Plan Discharge Items Patient Disposition: Home - Self-Care Reason For Visit: ACIDOSIS Discharge Diagnosis: Acidosis, Dehydration Condition on Discharge: Good Activity: Per Instructions section Non-emergency contact: Primary Care Provider Call non-emergency contact if: your symptoms worsen, your pain is worsening and your temperature is above 101 Follow-up/Referrals: Kelsie Currie MD [Primary Care Provider] - 05/13/22 11:30 am (Please keep follow up appointment) Diet: Regular and Full liquid Addtl Attending Provider Instructions: A discharge summary will be sent to your primary care physician to ensure continuity of care. You came into the hospital for throat pain after a tonsillectomy and adenoidectomy resulting in you having poor intake for food and drink. As result you were found to have slightly acidic blood. Over the course of your hospital stay you were given bicarbonate to counteract the ascitic blood. We also gave you pain medication through the IV to try to help you increase p.o. intake. You had a bad reaction to the medication known as Dilaudid otherwise known as hydromorphone, please try to stay away from that medication and let healthcare workers know in future hospitalizations that you get hallucinations from that medication. You had good response to medication known as Toradol, otherwise known as ketorolac. Toradol is an NSAID similar in mechanism of action to ibuprofen but a little bit stronger. Over the last day of your hospitalization you had good control of pain without the use of Toradol. Thus at this time since you are having good p.o. intake with a liquid diet and tolerating pain w ith suspension Tylenol and ibuprofen we feel it is okay for you to go home at the current time. Please be sure to follow-up with Dr. Gomez in the outpatient clinic. Follow-up: * You should be seen by your primary physician within the next week. * You should be seen by Dr. Gomez/ENT within the next few weeks. Medications: Your medication list has been reviewed and reconciled upon discharge to ensure accuracy and continuity of care. An updated list of all your medications is included with your hospital discharge paperwork. Please review this list closely, and make note of any changes. * An order for ibuprofen 800mg every 6 hours for pain and Tylenol 1000mg every 6 hours as needed for pain was sent to your pharmacy. Please use these doses for the next couple days then go back down to every 8 hours. * An order for famotidine 20mg twice a day was sent to your pharmacy as a suspension for the reflux symptoms you were having when you first came in. Please take this medication over the next 3-4 days. * Please use the oxycodone suspension you were given for breakthrough pain. Take your medications as instructed; do not skip a dose of your medicines. Make sure all of your doctors know every medicine you are taking (including [id number] medicines, vitamins, and supplements). let your primary care provider know before taking any new medicines because some of these may interact with your current medications, or may make your symptoms worse. CONTACT YOUR PRIMARY CARE PROVIDER if you experience any of the following: * Fevers or shaking chills * Shortness of breath not relieved by inhalers, fainting * Sudden abdominal distension not relieved by catheterization. * Difficulty following your treatment plan, or difficulty taking medications CALL 911 OR GO TO THE EMERGENCY DEPARTMENT if you experience any of the following: * Sudden, severe abdominal pain or nausea/vomiting * Severe chest pain, or chest pain that radiates (moves) to your jaw or arm * Sudden, severe shortness of breath or difficulty breathing It was was our pleasure taking care of you here at [facility] . Thank you for allowing us to participate in your care. Pending Studies at Discharge: No Stand-Alone Forms: My [facility], Smoking Cessation Medications and DC Order Prescriptions: New ibuprofen 100 mg/5 mL suspension 800 mg PO Q6H PRN (Reason: pain) 5 Days Qty: 473 RF: 0 acetaminophen 500 mg/15 mL liquid 1,000 mg PO Q6H PRN (Reason: fever) 5 Days Qty: 237 RF: 0 famotidine 40 mg/5 mL (8 mg/mL) suspension 2.5 ml PO BID 7 Days Qty: 35 RF: 0 Continued escitalopram oxalate 20 mg tablet 20 mg PO DAILY Qty: 30 RF: 2 oxycodone 5 mg/5 mL solution 10 mg PO Q6H PRN (Reason: Pain) RF: 0 ondansetron HCl 4 mg tablet 4 mg PO Q6H PRN (Reason: nausea and vomiting) Qty: 10 RF: 0 Discontinued acetaminophen [Tylenol Extra Strength] 500 mg Tablet 500 mg PO Q6H PRN (Reason: Pain) RF: 0 ibuprofen 200 mg Tablet 400 mg PO Q6H PRN (Reason: Pain) RF: 0 Discharge Orders: Discharge Order (Routine); Ordered 05/09/22 Ordered By: Davis Andrews/Other Patient Handouts: ED Dehydration (Adult) Admission Data Admit Date/Time: 05/08/22 18:03 Attending Provider: Ronald Ferguson Admit Provider: Rizwan Jordan Primary Care Provider: Kelsie Currie Other Providers: Rizwan Jordan Other Interventions: Discharge Summary Assessment (RN) Last Done: 05/09/22 15:39 Resident Activity Tracking Resident Involvement: Resident Care Provided Care Provided: Adult Hospital Medicine
== END 2022-05-09 16:34 | disposition home or self-care (01) | DRG 641 ==
LOC: ED 02:11 → 3E 02:11 → SUATTDRO 07:14 → 3E 09:15